=== PATIENT | female | born 1995 | race Caucasian/White ===

== ENCOUNTER → 2017-04-02 | Outpatient (CLI) | payer BC ==
[~2017-04-02] MED LIST: AUGM875T27 PO; AUGMENTIN PO; COLACE PO; OXYCODONE PO
--- NOTE | 2017-04-02 12:12 | REP ---
Clinical: Pain. Technique: AP, lateral, bilateral oblique and sunrise views of the right knee. Findings: No acute fracture dislocation. No definite effusion. Mild degenerative change with increased sclerosis to the medial tibial surface and minimal medial joint space narrowing cannot be excluded and should be correlated with physical examination. Impression: Cannot exclude mild degenerative changes along the medial joint space compartment. Signed by Noah Chapman MD 04/02/2017 12:03 P
== END ==
LOC: M WUC 11:46
PROVIDERS: ATTEND Physician Assistant
DX: M23.8X1 Other internal derangements of right knee (principal)

== ENCOUNTER → 2018-07-08 | Outpatient (CLI) | payer BC ==
[2018-07-10 11:23] LABS: HEPATITIS B SURFACE ANTIGEN NEGATIVE (NEGATIVE)
[2018-07-10 11:47] LABS: HIV 1&2 SCREEN CENTAUR NEGATIVE (NEGATIVE)
[2018-07-10 11:47] LABS: HEPATITIS C VIRUS ABY INDEX 0.1 INDEX (<0.8)
== END ==
LOC: M WUC 15:54
DX: Z11.3 Encounter for screening for infections with a predominantly sexual mode of transmission (principal)
CPT/HCPCS: 87340

== ENCOUNTER → 2018-11-21 | Outpatient (CLI) | payer OTHER ==
[~2018-11-21] MED LIST changes: -AUGM875T27 PO; +AUGM875T28 PO
--- NOTE | 2018-11-21 15:26 | REP ---
Chest two views HISTORY: Chest pain Comparison: None The lungs are clear. The heart is normal in size. The pulmonary vasculature is normal in appearance. The bony structure is intact. IMPRESSION: No acute disease. Electronically Signed by Quinten Aldridge MD 11/21/2018 03:17 P
--- NOTE | 2018-11-21 15:34 | REP ---
AP AND LATERAL CERVICAL SPINE, THREE VIEWS: HISTORY: Pain. There is no acute fracture or subluxation. The intervertebral discs are normal in height. IMPRESSION: There is no acute fracture or subluxation. Electronically Signed by Quinten Aldridge MD 11/21/2018 04:06 P
== END ==
LOC: M WUC 09:56
PROVIDERS: ATTEND Physician Assistant
DX: R07.89 Other chest pain (principal); M54.12 Radiculopathy, cervical region

== ENCOUNTER 2021-03-17 17:39 | Emergency (ER) | payer OTHER, BC ==
[~2021-03-17] VITALS: Ht 170.2 cm; Wt 120.0 kg
[2021-03-17] MEDS ORDERED: MICR1TAB18 (17:50)
[2021-03-17] MEDS ORDERED: EXCETAB33 PO (17:50)
--- NOTE | 2021-03-17 18:19 | REPVR ---
PROCEDURE INFORMATION: Exam: CT Head Without Contrast Exam date and time: 03/17/2021 6:04 PM Age: 25 years old Clinical indication: Pain; Headache; Additional info: Neuro/headache TECHNIQUE: Imaging protocol: Computed tomography of the head without contrast. Radiation optimization: All CT scans at this facility use at least one of these dose optimization techniques: automated exposure control; mA and/or kV adjustment per patient size (includes targeted exams where dose is matched to clinical indication); or iterative reconstruction. COMPARISON: No relevant prior studies available. FINDINGS: Brain: Normal. No hemorrhage. Unremarkable white matter. No mass effect. Cerebral ventricles: No hydrocephalus or evidence of increased intracranial pressure. Bones/joints: No acute abnormality. No acute fracture. Paranasal sinuses: Visualized sinuses are unremarkable. No fluid levels. Mastoid air cells: Visualized mastoid air cells are well aerated. Soft tissues: Unremarkable. IMPRESSION: No acute intracranial abnormality identified. Electronically signed by: Kian Vargas On 03/17/2021 18:19:48 PM
[2021-03-17] MEDS ORDERED: KETOROLAC 30 MG/ML 1ML VIAL IV ONE (18:40)
[2021-03-17] MEDS ORDERED: METOCLOPRAMIDE INJ 10MG/2ML VIAL (J2765 PER 1) IV ONE (18:40)
[2021-03-17] MEDS ORDERED: ISOVUE-370 76% 100ML VIAL As Ordered ONE (18:54)
[2021-03-17 19:12] LABS: BASO % 0.5 % (0.0-1.0); EOS # 0.2 10^3/uL (0.0-0.5); EOS % 2.7 % (0.0-3.0); HEMATOCRIT 38.4 % (36.0-47.0); HEMOGLOBIN 12.2 g/dl (12.0-15.5); LYMPH # 2.6 10^3/uL (1.5-5.0); LYMPH % 29.7 % (24.0-44.0); MEAN CORPUSCULAR HGB CONC 31.8 g/dl (32.0-36.5); MEAN CORPUSCULAR VOLUME 81.7 fl (80.0-96.0); MONO # 0.5 10^3/uL (0.0-0.8); MONO % 5.5 % (2.0-8.0); NEUTROPHILS # 5.3 10^3/uL (1.5-8.5); NEUTROPHILS % 61.3 % (36.0-66.0); PLATELET COUNT, AUTOMATED 398 10^3/uL (150-450); WHITE BLOOD COUNT 8.6 10^3/uL (4.0-10.0)
[2021-03-17 19:16] LABS: APPEARANCE, URINE CLEAR (CLEAR); BACTERIA, URINE AUTO NEGATIVE (NEGATIVE); BILIRUBIN, URINE AUTO NEGATIVE (NEGATIVE); BLOOD, URINE BLOOD NEGATIVE (NEGATIVE); COLOR, URINE YELLOW (YELLOW); GLUCOSE, URINE (UA) AUTO NEGATIVE (NEGATIVE); KETONE, URINE AUTO NEGATIVE (NEGATIVE); LEUKOCYTE ESTERASE, URINE AUTO TRACE (NEGATIVE); NITRITE, URINE AUTO NEGATIVE (NEGATIVE); PROTEIN, URINE AUTO NEGATIVE (NEGATIVE); RBC, URINE AUTO 1 /HPF (0-3); SPECIFIC GRAVITY URINE AUTO 1.008 (1.002-1.035); SQUAMOUS EPITHELIAL CELL UR AU 0 /HPF (0-6); UROBILINOGEN, URINE AUTO 0.2 mg/dL (0.0-2.0); WBC, URINE AUTO 1 /HPF (0-3)
[2021-03-17 19:20] LABS: INR 0.96
[2021-03-17 19:21] LABS: PARTIAL THROMBOPLASTIN TIME 28.1 SECONDS (24.2-38.5)
[2021-03-17 19:25] LABS: ALBUMIN 3.1 GM/DL (3.2-5.2); ALT/SGPT 16 U/L (12-78); BILIRUBIN,DIRECT < 0.1 MG/DL (0.0-0.2); BILIRUBIN,TOTAL 0.2 MG/DL (0.2-1.0); HCG, SERUM QUANTITATIVE < 1.0 MIU/ML; TOTAL PROTEIN 7.4 GM/DL (6.4-8.2)
--- NOTE | 2021-03-17 19:38 | REPVR ---
PROCEDURE INFORMATION: Exam: CT Angiography Head With Contrast, Arteriography Exam date and time: 03/17/2021 7:00 PM Age: 25 years old Clinical indication: Weakness; Additional info: CVA TECHNIQUE: Imaging protocol: Computed tomography angiography of the head with contrast. Exam focused on the arteries. 3D rendering (Not supervised by radiologist): MIP and/or 3D reconstructed images were created by the technologist. Radiation optimization: All CT scans at this facility use at least one of these dose optimization techniques: automated exposure control; mA and/or kV adjustment per patient size (includes targeted exams where dose is matched to clinical indication); or iterative reconstruction. Contrast material: ISOVUE 370; Contrast volume: 100 ml; Contrast route: INTRAVENOUS (IV); COMPARISON: CT Head without contrast 03/17/2021 6:03 PM FINDINGS: ANTERIOR CIRCULATION: Right internal carotid artery: Intracranial segment is patent with no significant stenosis. No aneurysm. Right middle cerebral artery: No occlusion or significant stenosis. No aneurysm. Right anterior cerebral artery: No occlusion or significant stenosis. No aneurysm. Left internal carotid artery: Intracranial segment is patent with no significant stenosis. No aneurysm. Left middle cerebral artery: No occlusion or significant stenosis. No aneurysm. Left anterior cerebral artery: No occlusion or significant stenosis. No aneurysm. POSTERIOR CIRCULATION: Right vertebral artery: No occlusion or significant stenosis. No aneurysm. Left vertebral artery: No occlusion or significant stenosis. No aneurysm. Basilar artery: No occlusion or significant stenosis. No aneurysm. Right posterior cerebral artery: No occlusion or significant stenosis. No aneurysm. Left posterior cerebral artery: No occlusion or significant stenosis. No aneurysm. 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 Brain: No definite mass, mass effect, or midline shift. Refer to the head CT report from the same day. Cerebral ventricles: No ventriculomegaly. Bones/joints: No acute fracture. Soft tissues: Unremarkable. IMPRESSION: No large vessel arterial occlusion on this CTA head. Electronically signed by: Pedro Lamar On 03/17/2021 19:37:27 PM
--- NOTE | 2021-03-17 19:44 | REPVR ---
PROCEDURE INFORMATION: Exam: CT Angiography Neck With Contrast Exam date and time: 03/17/2021 7:00 PM Age: 25 years old Clinical indication: Weakness; Additional info: CVA TECHNIQUE: Imaging protocol: Computed tomography angiography of the neck with contrast. 3D rendering (Not supervised by radiologist): MIP and/or 3D reconstructed images were created by the technologist. Radiation optimization: All CT scans at this facility use at least one of these dose optimization techniques: automated exposure control; mA and/or kV adjustment per patient size (includes targeted exams where dose is matched to clinical indication); or iterative reconstruction. Contrast material: ISOVUE 370; Contrast volume: 100 ml; Contrast route: INTRAVENOUS (IV); COMPARISON: No relevant prior studies available. FINDINGS: Right common carotid artery: Artifact limits evaluation of the proximal right common carotid artery, without occlusion. No significant stenosis or occlusion of the remaining right common carotid artery. Right internal carotid artery: Extracranial segment is patent with no stenosis. No dissection or occlusion. Right external carotid artery: No occlusion or significant stenosis. Right vertebral artery: No significant stenosis. No dissection or occlusion. Left common carotid artery: Artifact limits evaluation of the proximal left common carotid artery. Mild stenosis cannot be excluded. Left internal carotid artery: Extracranial segment is patent with no stenosis. No dissection or occlusion. Left external carotid artery: No occlusion or significant stenosis. Left vertebral artery: No significant stenosis. No dissection or occlusion. Subclavian arteries: Venous enhancement and artifact limit evaluation of the right subclavian artery, without occlusion. The left subclavian artery is patent, as visualized. Oropharynx: Mild symmetric prominence of the bilateral palatine tonsils. Mild prominence of the lingual tonsils, with decreased aeration of the bilateral valleculae. Bones/joints: Slight reversal of the lordotic curvature of the cervical spine. Mild degenerative changes are identified within the cervical spine. Soft tissues: No significant soft tissue swelling. Lymph nodes: Scattered nonspecific cervical lymph nodes are identified, some which are mildly enlarged. Small intraparotid lymph nodes in possible nodules are seen within the parotid glands bilaterally. IMPRESSION: 1. No stenosis or occlusion of the extracranial internal carotid arteries bilaterally. 2. Artifact limits evaluation of the proximal left common carotid artery. Mild stenosis cannot be excluded. 3. Additional findings described above. REFERENCES: NASCET CRITERIA. The degree of internal carotid artery stenosis is based on NASCET criteria. Normal is no stenosis. Mild is less than 50% stenosis. Moderate is 50-69% stenosis. Severe is 70% to 99% stenosis. Total occlusion is no detectable patent lumen. Findings are discussed with GAGE HWANG , 03/17/2021 7:41 PM EDT. The findings were acknowledged and understood. Electronically signed by: Pedro Lamar On 03/17/2021 19:44:23 PM
--- NOTE | 2021-03-17 22:30 | REPVR ---
PROCEDURE INFORMATION: Exam: MR Head Without Contrast Exam date and time: 03/17/2021 9:52 PM Age: 25 years old Clinical indication: Pain; Headache; Migraine; Aura effect not specified; Does respond to medication; Without migrainosus; Additional info: TIA vs atypical migraine TECHNIQUE: Imaging protocol: MR of the head without contrast. COMPARISON: CT Head without contrast 03/17/2021 6:03 PM FINDINGS: Brain: Low-lying cerebellar tonsils are visualized. No restricted diffusion within the brain to suggest an acute infarct. No cerebral edema. No intracranial mass effect. No magnetic susceptibility intracerebral blood products/hemosiderin visualized. There is a tiny focus of increased FLAIR signal intensity adjacent to the frontal horn of each lateral ventricle, which is likely incidental. Otherwise, there is no significant cerebral white matter disease. Cerebral ventricles: No ventriculomegaly. Pituitary gland and sella: There is a partially empty sella. Bones/joints: Nonspecific heterogeneous signal intensity of the skull. Paranasal sinuses: Minimal mucosal thickening of the left sphenoid sinus. Mastoid air cells: No mastoid effusion. Orbital cavity: Unremarkable. Evaluation of the optic nerves is limited. Soft tissues: Unremarkable, as visualized. Small intraparotid lymph nodes or nodules are seen bilaterally. There is a small right occipital lymph node. IMPRESSION: 1. No acute intracranial abnormality. 2. There is a partially empty sella. 3. Additional findings described above. Electronically signed by: Pedro Lamar On 03/17/2021 22:30:29 PM
[2021-03-17 23:29] VITALS: BP 121/73
--- NOTE | 2021-03-18 04:20 | ECGEPIP ---
[facility] - ED Test Date: 2021-03-17 Pat Name: JOSE JOHNSON Department: Room: - Gender: Female Blender: TIMOTHY : 1995 Requested By: Rashida Archibald Order Number: [id number] Reading MD: Abhinav Sherwood Measurements Intervals [place] Rate: 89 P: 20 GA: 158 QRS: 33 QRSD: 88 T: 8 QT: 356 QTc: 433 Interpretive Statements Normal sinus rhythm with sinus arrhythmia Comparison tracing not on file Electronically Signed on 03-18-2021 4:20:21 EDT by Abhinav Sherwood
== END 2021-03-17 23:38 | disposition home or self-care (01) ==
LOC: M ED 17:39
DX: G43.909 Migraine, unspecified, not intractable, without status migrainosus (principal); Z79.82 Long term (current) use of aspirin; Z79.3 Long term (current) use of hormonal contraceptives
CPT/HCPCS: 70450; 70496; 70498; 70551; 80047; 81001; 82248; 84702; 85025; 85610; 85730; 93005; 93041; 94760; 96374; 96375; 99285; J1885; J2765; Q9967

== ENCOUNTER → 2021-07-11 | Outpatient (CLI) | payer BC ==
[~2021-07-11] MED LIST changes: +EXCETAB33 PO; +MICR1TAB18
--- NOTE | 2021-07-11 13:31 | PFTRPT ---
Height: 68.00 Inches Weight: 260.00 Lbs BSA: 2.28 Diagnosis: R06.2 DATE: 07/11/2021 ORDERING PHYSICIAN: Mariah Duff MD Pre and post bronchodilator studies have excellent technical quality. Forced vital capacity is normal. FEV1 is in proportion. Obstructive index is therefore normal. Expiratory limit of the flow-volume loop is normal. No significant bronchodilator response is identified. Total lung capacity is normal. Residual volume is in proportion. Diffusing capacity is normal. No hemoglobin available for correction. Airway resistance and conductance are normal. IMPRESSION: Normal study. MTDD
== END ==
LOC: M CARPUL 12:44
PROVIDERS: ATTEND Pediatrics
DX: R06.2 Wheezing (principal)

== ENCOUNTER → 2021-12-26 | Outpatient (REF) | payer BC ==
[2021-12-27 12:38] LABS: APPEARANCE, URINE CLEAR (CLEAR); BACTERIA, URINE AUTO 3+ (NEGATIVE); BILIRUBIN, URINE AUTO NEGATIVE (NEGATIVE); BLOOD, URINE BLOOD NEGATIVE (NEGATIVE); COLOR, URINE STRAW (YELLOW); GLUCOSE, URINE (UA) AUTO NEGATIVE (NEGATIVE); KETONE, URINE AUTO NEGATIVE (NEGATIVE); LEUKOCYTE ESTERASE, URINE AUTO 2+ (NEGATIVE); NITRITE, URINE AUTO POSITIVE (NEGATIVE); PROTEIN, URINE AUTO NEGATIVE (NEGATIVE); RBC, URINE AUTO 0 /HPF (0-3); SPECIFIC GRAVITY URINE AUTO 1.004 (1.002-1.035); SQUAMOUS EPITHELIAL CELL UR AU 0 /HPF (0-6); UROBILINOGEN, URINE AUTO 0.2 mg/dL (0.0-2.0); WBC, URINE AUTO 10 /HPF (0-3)
== END ==
LOC: M LAB REF 11:52
PROVIDERS: ATTEND Obstetrics & Gynecology
DX: N30.01 Acute cystitis with hematuria (principal)

== ENCOUNTER 2022-05-19 11:59 | Inpatient (IN) | payer BC, OTHER ==
[~2022-05-19] VITALS: Ht 172.7 cm; Wt 101.0 kg
[~2022-05-19 11:59] MED LIST changes: +EXCETAB32 PO; -EXCETAB33 PO; -MICR1TAB18; +NORE1TAB94 PO
[2022-05-19 13:06] LABS: HEMATOCRIT 37.8 % (36.0-47.0); HEMOGLOBIN 12.5 g/dl (12.0-15.5); MEAN CORPUSCULAR HEMOGLOBIN 28.1 pg (27.0-33.0); MEAN CORPUSCULAR HGB CONC 33.1 g/dl (32.0-36.5); MEAN CORPUSCULAR VOLUME 84.9 fl (80.0-96.0); PLATELET COUNT, AUTOMATED 333 10^3/uL (150-450); RED BLOOD COUNT 4.45 10^6/uL (4.00-5.40); WHITE BLOOD COUNT 6.9 10^3/uL (4.0-10.0)
[2022-05-19 13:39] LABS: RSV AMPLIFICATION NEGATIVE (NEGATIVE)
[2022-05-19 13:44] LABS: HCG, SERUM QUALITATIVE NEGATIVE (NEGATIVE)
[2022-05-19 13:52] LABS: ACETAMINOPHEN LEVEL < 2.0 UG/ML (10.0-30.0); ALBUMIN 3.3 GM/DL (3.2-5.2); ALT/SGPT 18 U/L (12-78); AMPHETAMINES LEVEL URINE NEGATIVE (NEGATIVE); BARBITURATES URINE NEGATIVE (NEGATIVE); BENZODIAZEPINES URINE NEGATIVE (NEGATIVE); BILIRUBIN,DIRECT 0.1 MG/DL (0.0-0.2); BILIRUBIN,TOTAL 0.4 MG/DL (0.2-1.0); BLOOD UREA NITROGEN 10 MG/DL (7-18); CALCIUM LEVEL 9.2 MG/DL (8.5-10.1); CANNABINOIDS URINE POSITIVE (NEGATIVE); CARBON DIOXIDE LEVEL 28 MEQ/L (21-32); CHLORIDE LEVEL 107 MEQ/L (98-107); COCAINE METABOLITE URINE NEGATIVE (NEGATIVE); CREATININE FOR GFR 0.76 MG/DL (0.55-1.30); ETHYL ALCOHOL (ETHANOL) < 0.003 % (0.000-0.010); GLOMERULAR FILTRATION RATE > 60.0 (>60); GLUCOSE, FASTING 143 MG/DL (70-100); METHADONE URINE NEGATIVE (NEGATIVE); OPIATES URINE NEGATIVE (NEGATIVE); PHENCYCLIDINE URINE NEGATIVE (NEGATIVE); SODIUM LEVEL 138 MEQ/L (136-145); THYROID STIMULATING HORMONE 0.413 uIU/ML (0.358-3.740); TOTAL PROTEIN 6.9 GM/DL (6.4-8.2)
[2022-05-19] MEDS ORDERED: IBUPROFEN 400MG TAB PO PRN (14:35)
[2022-05-19] MEDS ORDERED: MOM 30ML SUSPENSION UDC PO PRN (14:35)
[2022-05-19] MEDS ORDERED: MAALOX 30 ML SUSP *UDC PO PRN (14:35)
[2022-05-19] MEDS ORDERED: VITA100093 PO (14:46)
[2022-05-19] MEDS ORDERED: LEXA5TAB13 PO (14:46)
[2022-05-19] MEDS ORDERED: HOME MED LIST COMPLETE! XX SCH (14:50)
[2022-05-19] MEDS: traZODone 50 MG TAB PO PRN (21:22)
[2022-05-19 21:44] VITALS: BP 127/92
[2022-05-19 21:50] VITALS: BP 127/92
[2022-05-20] MEDS: ESCITALOPRAM OXALATE 10 MG TAB (LEXAPRO) PO SCH (10:31)
[2022-05-20] MEDS: hydrOXYzine 50 MG TAB PO PRN (15:34)
[2022-05-20 17:22] VITALS: BP 132/88
[2022-05-20] MEDS: traZODone 50 MG TAB PO PRN (23:05)
[2022-05-21 06:47] VITALS: BP 148/87
[2022-05-21] MEDS: ESCITALOPRAM OXALATE 10 MG TAB (LEXAPRO) PO SCH (09:41)
[2022-05-21 17:33] VITALS: BP 146/96
[2022-05-21] MEDS: traZODone 50 MG TAB PO PRN (22:09)
[2022-05-22 06:00] VITALS: BP 136/98
[2022-05-22] MEDS: hydrOXYzine 50 MG TAB PO PRN (07:12)
[2022-05-22] MEDS: ESCITALOPRAM OXALATE 10 MG TAB (LEXAPRO) PO SCH (07:43)
[2022-05-22] MEDS ORDERED: TRAZ-252 PO (09:41)
[2022-05-22] MEDS ORDERED: HYDR50TA70 PO (09:41)
[2022-05-22] MEDS ORDERED: LEXA1TAB PO (09:41)
== END 2022-05-22 11:01 | disposition home or self-care (01) | DRG 756 ==
LOC: M ED 11:59 → M ED INP 14:35 → M PSY 20:53
PROVIDERS: ADMIT Psychiatry & Neurology Psychiatry; ATTEND Psychiatry & Neurology Psychiatry
DX: F41.1 Generalized anxiety disorder (principal); F06.31 Mood disorder due to known physiological condition with depressive features; F60.89 Other specific personality disorders; G43.909 Migraine, unspecified, not intractable, without status migrainosus; Z90.49 Acquired absence of other specified parts of digestive tract; Z79.899 Other long term (current) drug therapy; Z20.822 Contact with and (suspected) exposure to COVID-19; R45.851 Suicidal ideations; Z86.16 Personal history of COVID-19

== ENCOUNTER 2022-06-04 08:03 | Emergency (ER) | payer OTHER ==
[~2022-06-04] VITALS: Ht 172.7 cm; Wt 99.1 kg
[~2022-06-04 08:03] MED LIST changes: +HYDR50TA70 PO; +LEXA1TAB PO; +LEXA5TAB13 PO; +TRAZ-252 PO; +VITA100093 PO
[2022-06-04] MEDS ORDERED: ARIP10TA32 (08:11)
[2022-06-04 08:49] LABS: BASO % 0.2 % (0.0-1.0); HEMATOCRIT 38.7 % (36.0-47.0); HEMOGLOBIN 12.9 g/dl (12.0-15.5); LYMPH % 8.4 % (24.0-44.0); MEAN CORPUSCULAR HEMOGLOBIN 27.9 pg (27.0-33.0); MEAN CORPUSCULAR HGB CONC 33.3 g/dl (32.0-36.5); MEAN CORPUSCULAR VOLUME 83.6 fl (80.0-96.0); MONO # 0.3 10^3/uL (0.0-0.8); MONO % 2.6 % (2.0-8.0); NEUTROPHILS # 10.9 10^3/uL (1.5-8.5); NEUTROPHILS % 88.4 % (36.0-66.0); PLATELET COUNT, AUTOMATED 352 10^3/uL (150-450); RED BLOOD COUNT 4.63 10^6/uL (4.00-5.40); WHITE BLOOD COUNT 12.3 10^3/uL (4.0-10.0)
[2022-06-04 09:11] LABS: HCG, SERUM QUALITATIVE NEGATIVE (NEGATIVE)
[2022-06-04 09:17] LABS: ALBUMIN 3.6 GM/DL (3.2-5.2); ALT/SGPT 21 U/L (12-78); BILIRUBIN,DIRECT 0.2 MG/DL (0.0-0.2); BILIRUBIN,TOTAL 0.5 MG/DL (0.2-1.0); BLOOD UREA NITROGEN 9 MG/DL (7-18); CALCIUM LEVEL 9.4 MG/DL (8.5-10.1); CARBON DIOXIDE LEVEL 22 MEQ/L (21-32); CHLORIDE LEVEL 107 MEQ/L (98-107); GLOMERULAR FILTRATION RATE > 60.0 (>60); GLUCOSE, FASTING 130 MG/DL (70-100); LIPASE 84 U/L (73-393); POTASSIUM SERUM 3.6 MEQ/L (3.5-5.1); SODIUM LEVEL 138 MEQ/L (136-145); TOTAL PROTEIN 7.7 GM/DL (6.4-8.2)
[2022-06-04] MEDS ORDERED: ONDANSETRON 4MG 2ML VIAL IV ONE (10:25)
[2022-06-04] MEDS ORDERED: NS 1,000 ML IV ONE (10:25)
[2022-06-04] MEDS ORDERED: GI COCKTAIL 50ML BTL(HYOSCYAMINE/MAALOX/LIDOCAINE VISCOUS)(1:3:1) PO ONE (10:25)
[2022-06-04] MEDS ORDERED: KETOROLAC 30 MG/ML 1ML VIAL IV ONE (10:25)
[2022-06-04] MEDS ORDERED: PANTOPRAZOLE 40MG VIAL IV ONE (10:25)
[2022-06-04] MEDS ORDERED: SUCRALFATE 1 GM TAB PO ONE (10:25)
[2022-06-04] MEDS ORDERED: ISOVUE-370 76% 100ML VIAL As Ordered ONE (10:46)
[2022-06-04] MEDS ORDERED: CARA1TAB6 PO (11:58)
[2022-06-04] MEDS ORDERED: OMEP-173 PO (11:58)
[2022-06-04 12:14] VITALS: BP 115/68
== END 2022-06-04 12:12 | disposition home or self-care (01) ==
LOC: M ED 08:03
DX: R10.9 Unspecified abdominal pain (principal); R11.2 Nausea with vomiting, unspecified; Z79.899 Other long term (current) drug therapy
CPT/HCPCS: 74177; 80048; 80076; 81001; 83690; 84703; 85025; 87086; 96361; 96374; 96375; 99283; C9113; J1885; J2405; Q9967

== ENCOUNTER 2022-07-02 16:31 | Emergency (ER) | payer OTHER ==
[~2022-07-02] VITALS: Ht 172.7 cm; Wt 97.7 kg
[~2022-07-02 16:31] MED LIST changes: +ARIP10TA32; +CARA1TAB6 PO; +OMEP-173 PO
[2022-07-02] MEDS ORDERED: LAMO25TA4 PO (16:40)
[2022-07-02 17:07] LABS: BASO # 0.1 10^3/uL (0.0-0.2); BASO % 0.4 % (0.0-1.0); EOS # 0.2 10^3/uL (0.0-0.5); EOS % 1.7 % (0.0-3.0); HEMATOCRIT 38.8 % (36.0-47.0); HEMOGLOBIN 12.9 g/dl (12.0-15.5); LYMPH % 17.5 % (24.0-44.0); MEAN CORPUSCULAR HEMOGLOBIN 27.2 pg (27.0-33.0); MEAN CORPUSCULAR HGB CONC 33.2 g/dl (32.0-36.5); MEAN CORPUSCULAR VOLUME 81.9 fl (80.0-96.0); MONO # 0.6 10^3/uL (0.0-0.8); MONO % 5.2 % (2.0-8.0); NEUTROPHILS # 8.5 10^3/uL (1.5-8.5); NEUTROPHILS % 74.7 % (36.0-66.0); PLATELET COUNT, AUTOMATED 380 10^3/uL (150-450); RED BLOOD COUNT 4.74 10^6/uL (4.00-5.40); WHITE BLOOD COUNT 11.3 10^3/uL (4.0-10.0)
[2022-07-02] MEDS ORDERED: GI COCKTAIL 50ML BTL(HYOSCYAMINE/MAALOX/LIDOCAINE VISCOUS)(1:3:1) PO ONE (17:15)
[2022-07-02] MEDS ORDERED: NS 1,000 ML IV ONE (17:15)
[2022-07-02] MEDS ORDERED: ONDANSETRON 4MG 2ML VIAL IV ONE (17:15)
[2022-07-02] MEDS ORDERED: PANTOPRAZOLE 40MG VIAL IV ONE (17:15)
[2022-07-02 17:52] LABS: ALBUMIN 3.5 GM/DL (3.2-5.2); BILIRUBIN,DIRECT 0.2 MG/DL (0.0-0.2); BILIRUBIN,TOTAL 0.3 MG/DL (0.2-1.0); TOTAL PROTEIN 7.3 GM/DL (6.4-8.2)
[2022-07-02 19:58] VITALS: BP 127/80
== END 2022-07-02 20:12 | disposition home or self-care (01) ==
LOC: M ED 16:31
DX: K21.9 Gastro-esophageal reflux disease without esophagitis (principal); F32.A Depression, unspecified; F41.9 Anxiety disorder, unspecified; E66.9 Obesity, unspecified; Z79.899 Other long term (current) drug therapy; Z79.3 Long term (current) use of hormonal contraceptives
CPT/HCPCS: 80047; 80076; 83690; 84702; 85025; 96361; 96374; 96375; 99284; C9113; J2405

== ENCOUNTER 2022-08-21 02:54 | Emergency (ER) | payer OTHER, SELFPAY ==
[~2022-08-21] VITALS: Ht 172.7 cm; Wt 102.0 kg
[~2022-08-21 02:54] MED LIST changes: +LAMO25TA4 PO
[2022-08-21 02:55] VITALS: BP 141/102
== END 2022-08-21 04:45 | disposition left against medical advice (07) ==
LOC: M ED 02:54
DX: Z53.21 Procedure and treatment not carried out due to patient leaving prior to being seen by health care provider (principal)

== ENCOUNTER 2022-11-06 18:46 | Emergency (ER) | payer SELFPAY ==
[~2022-11-06] VITALS: Ht 172.7 cm; Wt 100.0 kg
[2022-11-06 18:46] VITALS: BP 146/92
[2022-11-06] MEDS ORDERED: LAMO200T3 (19:09)
== END 2022-11-06 20:21 | disposition left against medical advice (07) ==
LOC: M ED 18:46
DX: Z53.21 Procedure and treatment not carried out due to patient leaving prior to being seen by health care provider (principal)

== ENCOUNTER → 2023-01-26 | Outpatient (CLI) | payer BC ==
[~2023-01-26] MED LIST changes: +LAMO200T3
== END ==
LOC: M WUC 11:59
PROVIDERS: ATTEND Physician Assistant
DX: J06.9 Acute upper respiratory infection, unspecified (principal); R06.02 Shortness of breath

== ENCOUNTER → 2023-10-17 | Outpatient (REF) | payer BC | LOC: M SFHCWAGY 17:58 | PROVIDERS: ATTEND Advanced Practice Midwife | DX: Z12.4 Encounter for screening for malignant neoplasm of cervix (principal) ==

== ENCOUNTER 2024-10-19 09:09 | Emergency (ER) | payer BC ==
[~2024-10-19] VITALS: Ht 172.7 cm; Wt 99.9 kg
[~2024-10-19 09:09] MED LIST changes: -ARIP10TA32; +ARIP10TA63
[2024-10-19 10:09] LABS: BASO # 0.1 10^3/uL (0.0-0.2); BASO % 0.8 % (0.0-1.0); EOS # 0.3 10^3/uL (0.0-0.5); EOS % 2.7 % (0.0-3.0); HEMATOCRIT 43.2 % (36.0-47.0); HEMOGLOBIN 14.9 g/dl (12.0-15.5); LYMPH # 1.9 10^3/uL (1.5-5.0); LYMPH % 17.9 % (24.0-44.0); MEAN CORPUSCULAR HGB CONC 34.5 g/dl (32.0-36.5); MONO # 0.5 10^3/uL (0.0-0.8); MONO % 5.1 % (2.0-8.0); NEUTROPHILS # 7.7 10^3/uL (1.5-8.5); NEUTROPHILS % 73.1 % (36.0-66.0); PLATELET COUNT, AUTOMATED 406 10^3/uL (150-450); RED BLOOD COUNT 5.14 10^6/uL (4.00-5.40); WHITE BLOOD COUNT 10.5 10^3/uL (4.0-10.0)
[2024-10-19] MEDS: ONDANSETRON 4MG 2ML VIAL IV ONE (10:22)
[2024-10-19] MEDS: PANTOPRAZOLE 40MG VIAL IV ONE (10:22)
[2024-10-19] MEDS: KETOROLAC 30 MG/ML 1ML VIAL IV ONE (10:23)
[2024-10-19 10:34] LABS: LIPASE 20 U/L (12-53)
[2024-10-19 10:36] LABS: ALBUMIN 3.7 G/DL (3.2-5.2); ALKALINE PHOSPHATASE 81 U/L (35-104); ALT/SGPT 63 U/L (7.0-40); AST/SGOT 26 U/L (<34); BILIRUBIN,DIRECT 0.1 MG/DL (<0.4); BILIRUBIN,TOTAL 0.5 MG/DL (0.3-1.2); TOTAL PROTEIN 7.9 G/DL (5.7-8.2)
[2024-10-19] MEDS: SUCRALFATE SUSP 1GM/10ML UD PO ONE (10:43)
[2024-10-19 10:45] LABS: HCG, SERUM QUALITATIVE NEGATIVE (NEGATIVE)
[2024-10-19] MEDS: ACETAMINOPHEN *IV* 1,000 MG in IV 1 EA IV ONE (11:15)
[2024-10-19] MEDS ORDERED: ISOVUE-370 76% 100ML VIAL As Ordered ONE (11:30)
[2024-10-19] MEDS: FAMOTIDINE IV BAG 20 MG in IV 1 EA IV ONE (12:30)
[2024-10-19] MEDS: MORPHINE 4 MG/ML 1ML VIAL IV ONE ×2 (13:59→14:24)
[2024-10-19] MEDS ORDERED: FAMO20TA4 PO (15:06)
[2024-10-19] MEDS ORDERED: PROT1TAB2 PO (15:06)
[2024-10-19 15:18] VITALS: BP 116/73; TEMP 97.1; O2SAT 97
== END 2024-10-19 15:29 | disposition home or self-care (01) ==
LOC: M ED 09:09
DX: R10.13 Epigastric pain (principal); R10.9 Unspecified abdominal pain; K59.00 Constipation, unspecified; F41.9 Anxiety disorder, unspecified; Z79.899 Other long term (current) drug therapy; Z90.89 Acquired absence of other organs
CPT/HCPCS: 74177; 80047; 80076; 83690; 84703; 85025; 96374; 96375; 96376; 99284; J0131; J1885; J2405; J2470; Q9967; S0028

== ENCOUNTER 2024-10-31 08:51 | Emergency (ER) | payer BC ==
[~2024-10-31] VITALS: Ht 172.7 cm; Wt 98.3 kg
[~2024-10-31 08:51] MED LIST changes: +FAMO20TA4 PO; +PROT1TAB2 PO
[2024-10-31 11:45] VITALS: BP 139/78; TEMP 98.4; O2SAT 98
== END 2024-10-31 11:45 | disposition home or self-care (01) ==
LOC: M ED 08:51
DX: T24.111A Burn of first degree of right thigh, initial encounter (principal); T31.0 Burns involving less than 10% of body surface; F41.9 Anxiety disorder, unspecified; F32.A Depression, unspecified; Z79.899 Other long term (current) drug therapy

== ENCOUNTER → 2025-01-26 | Outpatient (REF) | payer BC ==
[2025-01-26 15:55] LABS: BASO # 0.1 10^3/uL (0.0-0.2); BASO % 0.8 % (0.0-1.0); EOS # 0.4 10^3/uL (0.0-0.5); EOS % 3.7 % (0.0-3.0); HEMATOCRIT 41.9 % (36.0-47.0); HEMOGLOBIN 13.8 g/dl (12.0-15.5); LYMPH % 20.4 % (24.0-44.0); MEAN CORPUSCULAR HEMOGLOBIN 29.3 pg (27.0-33.0); MEAN CORPUSCULAR HGB CONC 32.9 g/dl (32.0-36.5); MONO # 0.5 10^3/uL (0.0-0.8); MONO % 4.7 % (2.0-8.0); NEUTROPHILS % 70.2 % (36.0-66.0); PLATELET COUNT, AUTOMATED 334 10^3/uL (150-450); RED BLOOD COUNT 4.71 10^6/uL (4.00-5.40)
[2025-01-26 16:13] LABS: HEMOGLOBIN A1c 5.3 % (4.0-6.0)
[2025-01-26 16:28] LABS: ALBUMIN 3.6 G/DL (3.2-5.2); ALKALINE PHOSPHATASE 87 U/L (35-104); ALT/SGPT < 9 U/L (7.0-40); AST/SGOT < 8 U/L (<34); BILIRUBIN,DIRECT < 0.1 MG/DL (<0.4); BILIRUBIN,TOTAL 0.4 MG/DL (0.3-1.2); BLOOD UREA NITROGEN 10 MG/DL (9-23); CALCIUM LEVEL 8.9 MG/DL (8.5-10.1); CARBON DIOXIDE LEVEL 25 MMOL/L (20-31); CHLORIDE LEVEL 106 MMOL/L (98-107); CHOLESTEROL LEVEL 277 MG/DL (<200); CHOLESTEROL RISK RATIO 5.55 (<5); CREATININE FOR GFR 0.82 MG/DL (0.55-1.30); GLOMERULAR FILTRATION RATE > 60.0 (>60); GLUCOSE, FASTING 84 MG/DL (60-100); HDL CHOLESTEROL 49.9 MG/DL (>40); LDL CHOLESTEROL 206.5 MG/DL (<100); NON-HDL-C 227.1 MG/DL; POTASSIUM SERUM 4.6 MMOL/L (3.5-5.1); SODIUM LEVEL 139 MMOL/L (136-145); THYROID STIMULATING HORMONE 0.902 uIU/ML (0.55-4.78); TOTAL PROTEIN 7.2 G/DL (5.7-8.2); TRIGLYCERIDES LEVEL 103 MG/DL (<150)
== END ==
LOC: M LAB REF 15:31
PROVIDERS: ATTEND Nurse Practitioner Family
DX: E66.01 Morbid (severe) obesity due to excess calories (principal)